=== PATIENT | female | born 1995 | race Caucasian/White ===

== ENCOUNTER → 2019-05-31 | Outpatient (CLI) | payer BC ==
--- NOTE | 2019-05-31 11:33 | Diagnostic Imaging Report ---
INDICATION: survey. TECHNIQUE: Multiple real-time grayscale images were obtained over the gravid uterus. COMPARISON: None FINDINGS: There is a single live fetus in a cephalic presentation. heart rate was recorded at 150 BPM. Placenta is anterior. Amniotic fluid index is 10.8 cm. survey demonstrates kidneys, bladder and stomach to be unremarkable. The brain is unremarkable. There is a four-chamber heart. There is a three-vessel cord with normal insertion. spine is unremarkable. Cervical length is 3.8 cm. Maternal adnexa was not evaluated. Biometrical measurements are as follows: Biparietal 4.86 cm, age 20 weeks 5 days. Head circumference 17.97 cm, age 20 weeks 3 days. Abdominal circumference 14.44 cm, age 19 weeks 6 days. Femur length 3.41 cm, age 20 weeks 6 days. Sonographic estimate age: 20 weeks 4 days. Sonographic estimated date of delivery: 10/14/2019. Estimated Weight: 341 gm (+/- 50 gm). LMP percentile: 68%. heart rate: 150 beats per minute. number: 1 of 1. IMPRESSION: Single live IUP 20 weeks 4 days gestational age. The estimated date of confinement sonographically is 10/14/2019. Dictated by: Dictated on workstation # [id number]
== END ==
LOC: RAD 10:15
PROVIDERS: ATTEND Nurse Practitioner Women's Health
DX: Z36.89 Encounter for other specified antenatal screening (principal); Z3A.20 20 weeks gestation of pregnancy
CPT/HCPCS: 76805

== ENCOUNTER 2019-08-06 11:33 | Outpatient (CLI) | payer BC ==
[~2019-08-06] VITALS: Ht 172.7 cm; Wt 108.8 kg
[2019-08-06] VITALS (13 sets, daily range): BP systolic 120–146; BP diastolic 64–88
--- NOTE | 2019-08-06 11:45 | NUR ---
Admitted per w/c for high blood pressure. Denies leaking of fluid or bleeding. UA obtained. EFM applied. FHTs in 140's with movement noted.
--- NOTE | 2019-08-06 12:20 | NUR ---
This RN at bedside, introduces self to pt. Pt is , EDC 10/15, 29weeks and 5 days gestation. 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 Pt had her BP taken at that time (approx 1045) which was 170/110. Pt denies: headache, blurred vision/vision changes, epigastric pain, n/v/d, HX of hypertension or any health issues, denies complications with . Trace edema in lower extremities, 2+ reflexes. Pt states shes had approx 2 bottles of water today. BP has came down since admit. FHT reactive, no UC. Dr Lynn currently in surgery, will have her call RN when out of surgery for orders since VSS. Pt updated on current status/plan of care and given water. Pt denies needs at this time. Call light within reach, mother of pt at bedside.
--- NOTE | 2019-08-06 13:20 | NUR ---
Checked on pt at this time. Denies needs. VSS. Still waiting for Dr Lynn to finish surgery. Will update pt as soon as RN hear from
--- NOTE | 2019-08-06 13:58 | NUR ---
Dr Lynn called for pt report. Detailed Report given to Dr Lynn at this time including pt CO, current BPs, no preE SS. Dr Lynn putting orders in for PreE labs. This RN will update pt on plan of care
[2019-08-06 14:27] LABS: BASOPHILS % (AUTO) 0 % (0-10); EOSINOPHILS # (AUTO) 0.1 10^3/uL (0.0-0.3); EOSINOPHILS % (AUTO) 1 % (0-10); HEMATOCRIT 30 % (35-52); LYMPHOCYTES # (AUTO) 1.8 X 10^3 (1.0-4.0); LYMPHOCYTES % (AUTO) 17 % (12-44); MEAN CORPUSCULAR HEMOGLOBIN 28 PG (25-34); MEAN CORPUSCULAR HGB CONC 33 G/DL (32-36); MEAN CORPUSCULAR VOLUME 84 FL (80-99); MEAN PLATELET VOLUME 9.9 FL (7.4-10.4); MONOCYTES # (AUTO) 0.6 X 10^3 (0.0-1.0); MONOCYTES % (AUTO) 5 % (0-12); NEUTROPHILS # (AUTO) 8.3 X 10^3 (1.8-7.8); NEUTROPHILS % (AUTO) 77 % (42-75); PLATELET COUNT 263 10^3/uL (130-400); RED CELL DISTRIBUTION WIDTH 13.8 % (10.0-14.5); WHITE BLOOD COUNT 10.8 10^3/uL (4.3-11.0)
[2019-08-06 14:47] LABS: ALANINE AMINOTRANSFERASE 8 U/L (0-55); ALBUMIN 3.1 GM/DL (3.2-4.5); ALKALINE PHOSPHATASE 63 U/L (40-136); BILIRUBIN,TOTAL 0.1 MG/DL (0.1-1.0); BUN/CREATININE RATIO 13; CALCIUM 8.5 MG/DL (8.5-10.1); CARBON DIOXIDE 21 MMOL/L (21-32); CHLORIDE 108 MMOL/L (98-107); CREATININE SERUM 0.48 MG/DL (0.60-1.30); GFR ESTIMATED > 60; GLUCOSE 121 MG/DL (70-105); POTASSIUM 3.6 MMOL/L (3.6-5.0); SODIUM 136 MMOL/L (135-145); TOTAL PROTEIN 6.4 GM/DL (6.4-8.2); URIC ACID 2.4 MG/DL (2.6-7.2)
--- NOTE | 2019-08-06 15:23 | NUR ---
ultrasound called for sono at this time
--- NOTE | 2019-08-06 15:30 | NUR ---
THIS RN TALKED TO DR COLBY ON LD UNIT. LABS OKAYED BY DR. DR COLBY ORDER ULTRASOUND FOR GROWTH. PT MAY BE DC TO HOME. SEND 24 HR URINE HOME WITH PT AND WILL RETURN URINE TO OFFICE ON MONDAY AM. PT UPDATED ON PLANOF CARE WHILE US AT BEDSIDE (APPROX [id number])
--- NOTE | 2019-08-06 16:00 | NUR ---
THIS RN GIVES AND EXPLAINS DC INSTRUCTIONS TO PT.QUESTIONS ANSWERED.
--- NOTE | 2019-08-06 16:23 | Diagnostic Imaging Report ---
INDICATION: Evaluate growth. TECHNIQUE: Multiple real-time grayscale images were obtained over the gravid uterus. COMPARISON: 05/31/2019. FINDINGS: There is a single live fetus in a breech presentation. heart rate was recorded at 139 BPM. Placenta appears anterior. Amniotic fluid index is 16.2 cm. No gross abnormality is seen. Biometrical measurements are as follows: Biparietal 7.82 cm, age 31 weeks 3 days. Head circumference 28.32 cm, age 31 weeks 1 days. Abdominal circumference 26.63 cm, age 30 weeks 6 days. Femur length 5.65 cm, age 29 weeks 5 days. Sonographic estimate age: 30 weeks 6 days. Sonographic estimated date of delivery: 10/09/2019. Estimated Weight: 1582 gm (+/- 231 gm). LMP percentile: 60%. heart rate: 139 beats per minute. number: 1 of 1. IMPRESSION: Single live IUP of approximately 31 weeks gestational age, showing normal interval growth when compared with prior exam. No complicating features are detected. Dictated by: Dictated on workstation # [id number]
--- NOTE | 2019-08-07 10:53 | Physician Query-Final Dx ---
Clinic Account Progress/Dx Physician Query: Please give diagnosis Please include # weeks gestation Date of Service August 06, 2019 at 11:33 DANIELLE WU August 07, 2019 10:53
== END 2019-08-06 16:00 | disposition home or self-care (01) ==
LOC: WSo 11:33 → LDRP 11:34 → WSo 16:00
PROVIDERS: ATTEND Obstetrics & Gynecology
DX: Z34.93 Encounter for supervision of normal pregnancy, unspecified, third trimester (principal); Z3A.34 34 weeks gestation of pregnancy
CPT/HCPCS: 36415; 76805; 80053; 82570; 83615; 84156; 84550; 85025; 99213

== ENCOUNTER → 2019-09-10 | Outpatient (CLI) | payer BC ==
[~2019-09-10] MED LIST: LABE200T7 PO; PREN-142 PO
--- NOTE | 2019-09-10 10:48 | Diagnostic Imaging Report ---
INDICATION: Gestational hypertension. TECHNIQUE: Multiple real-time grayscale images were obtained over the gravid uterus. COMPARISON: 08/06/2019. FINDINGS: There is a single live fetus in a cephalic presentation. heart rate was recorded at 142 BPM. Placenta is anterior. Amniotic fluid index is 8.2 cm. Biophysical profile was performed. Biophysical profile score is normal at 8/8. Biometrical measurements are as follows: Biparietal 9.08 cm, age 36 weeks 6 days. Head circumference 32.18 cm, age 36 weeks 3 days. Abdominal circumference 30.06 cm, age 34 weeks 1 days. Femur length 6.44 cm, age 33 weeks 2 days. Sonographic estimate age: 35 weeks 2 days. Sonographic estimated date of delivery: 10/13/2019. Estimated Weight: 2398 gm (+/- 350 gm). LMP percentile: 41%. heart rate: 142 beats per minute. number: 1 of 1. IMPRESSION: Single live IUP of approximately 35 weeks gestational age demonstrated normal interval growth when compared with prior exam. Biophysical profile score is normal at 8/8. Dictated by: Dictated on workstation # [id number]
== END ==
LOC: RAD 09:35
PROVIDERS: ATTEND Obstetrics & Gynecology
DX: O13.3 Gestational [pregnancy-induced] hypertension without significant proteinuria, third trimester (principal); O32.9XX0 Maternal care for malpresentation of fetus, unspecified, not applicable or unspecified; Z3A.35 35 weeks gestation of pregnancy
CPT/HCPCS: 76805; 76819

== ENCOUNTER 2019-09-11 00:01 | Outpatient (CLI) | payer BC ==
[~2019-09-11] VITALS: Ht 172.7 cm; Wt 113.5 kg
--- NOTE | 2019-09-11 00:10 | NUR ---
ALYSSA DANIELLE presented to unit via W/C from ED, accompanied by Mohinder Wilson, vacuum technician & SO, with c/o CONTRACTIONS,BLOODY DISCHARGE. ALYSSA DANIELLE weighed, gowned, voided, and to bed. EFHM and TOCO applied, VS taken. ALYSSA DANIELLE oriented to bed controls, call light, TV, heat, and A/C controls.
[2019-09-11 00:19] VITALS: BP 132/104
[2019-09-11] MEDS ORDERED: PREN-142 PO (00:24)
[2019-09-11] MEDS ORDERED: LABE200T7 PO (00:24)
[2019-09-11 00:36] VITALS: BP 128/71
[2019-09-11 00:47] LABS: BILIRUBIN,URINE NEGATIVE (NEGATIVE); CLARITY,URINE SL CLOUDY; COLOR,URINE YELLOW; GLUCOSE, URINE (UA) 2+ (NEGATIVE); KETONES,URINE TRACE (NEGATIVE); LEUKOCYTE ESTERASE ,URINE NEGATIVE (NEGATIVE); NITRITE,URINE NEGATIVE (NEGATIVE); PH,URINE 6.5 (5-9); PROTEIN,URINE TRACE (NEGATIVE)
[2019-09-11 00:49] LABS: BACTERIA,URINE TRACE /HPF; SQUAMOUS EPITHELIAL CELL,UR 0-2 /HPF
[2019-09-11 00:50] VITALS: BP 126/69
--- NOTE | 2019-09-11 01:20 | NUR ---
D/C instructions given & explained per Mohinder Marie RN, pt. verbalized understanding & signed, copy of D/C instructions to pt. Pt. left WS ambulatory escorted by , to home via private vehicle.
--- NOTE | 2019-09-12 09:38 | Physician Query-Final Dx ---
Clinic Account Progress/Dx Physician Query: Please give diagnosis Please give # weeks gestation Date of Service Sep 11, 2019 at 00:01 DANIELLE WU Sep 12, 2019 09:38
== END 2019-09-11 01:20 | disposition home or self-care (01) ==
LOC: WSo 00:01 → LDRP 00:02 → WSo 01:20
PROVIDERS: ATTEND Obstetrics & Gynecology
DX: O26.853 Spotting complicating pregnancy, third trimester (principal); Z3A.00 Weeks of gestation of pregnancy not specified
CPT/HCPCS: 81000; G0463; 99212

== ENCOUNTER 2019-09-23 14:33 | Outpatient (CLI) | payer BC ==
[~2019-09-23] VITALS: Ht 172.7 cm; Wt 114.6 kg
--- NOTE | 2019-09-23 14:00 | NUR ---
ALYSSA DANIELLE presented to unit via AMBULATORY from ED, accompanied by MOTHER, with c/o BPP BEING 4/8. SHASHI,ALYSSA L weighed, gowned, voided, and to bed. EFHM and TOCO applied, VS taken. SHASHICRUZALYSSA Azeem oriented to bed controls, call light, TV, heat, and A/C controls.
[2019-09-23 14:10] VITALS: BP 141/88
[2019-09-23 16:00] VITALS: BP 143/88
--- NOTE | 2019-09-23 16:10 | NUR ---
DR. AGUILAR ON THE UNIT, INFORMED OF PT'S ARRIVAL, 06/25 BPP, B/PS, REVIEW OF STRIP, APPT WITH DR. COLBY ON MONDAY, VOICES THAT SHE FELL YESTERDAY BUT LANDED ON HER BACK AND BUTT. ORDER RECEIVED TO DISCHARGE PT HOME.
--- NOTE | 2019-09-23 16:13 | NUR ---
DISCHARGE PAPERS PROVIDED AND REVIEWED WITH PT, PT VERBALIZES UNDERSTANDING AND DENIES ANY QUESTIONS @ THIS TIME. PAPER SIGNED.
--- NOTE | 2019-09-23 16:15 | NUR ---
PT DISCHARGED FROM -[facility] TO PERSONAL AUTO VIA AMBULATORY IN STABLE CONDITION ACC BY PT'S MOTHER.
--- NOTE | 2019-09-24 12:28 | Physician Query-Final Dx ---
Clinic Account Progress/Dx Physician Query: Please give diagnosis Please include #weeks gestation Date of Service Sep 23, 2019 at 14:33 DANIELLE WU Sep 24, 2019 12:28
== END 2019-09-23 16:15 | disposition home or self-care (01) ==
LOC: WSo 14:33 → LDRP 14:34 → WSo 16:15
PROVIDERS: ATTEND Obstetrics & Gynecology
DX: Z34.90 Encounter for supervision of normal pregnancy, unspecified, unspecified trimester (principal); Z3A.00 Weeks of gestation of pregnancy not specified

== ENCOUNTER → 2019-09-23 | Outpatient (CLI) | payer BC ==
--- NOTE | 2019-09-23 13:12 | Diagnostic Imaging Report ---
INDICATION: Follow-up growth and gestational hypertension. TECHNIQUE: Multiple real-time grayscale images were obtained over the gravid uterus. COMPARISON: 09/10/2019. FINDINGS: There is a single live fetus in a cephalic presentation. heart rate was recorded at 146 bpm. The placenta is anterior. Amniotic fluid index is 7.8 cm. A biophysical profile was performed with overall score of 4/8. A two-point deduction each was given for lack of breathing movements visualized as well as movements. Biometrical measurements are as follows: Biparietal 9.22 cm, age 37 weeks 4 days. Head circumference 33.23 cm, age 38 weeks 0 days. Abdominal circumference 30.76 cm, age 34 weeks 5 days. Femur length 7.07 cm, age 36 weeks 2 days. Sonographic estimate age: 36 weeks 5 days. Sonographic estimated date of delivery: 10/16/19. Estimated Weight: 2756 gm (+/- 402 gm). LMP percentile: 37%. heart rate: 146 beats per minute. number: 1 of 1. IMPRESSION: Single live IUP at 36-37 weeks gestational age showing normal interval growth. Biophysical profile score is 4/8, as described. Amniotic fluid index is lower limits at 7.8 cm. Results were called to Dr. Lynn by the technologist at the completion of the study. Dictated by: Dictated on workstation # [id number]
== END ==
LOC: RAD 10:39
PROVIDERS: ATTEND Obstetrics & Gynecology
DX: O13.3 Gestational [pregnancy-induced] hypertension without significant proteinuria, third trimester (principal); Z3A.34 34 weeks gestation of pregnancy
CPT/HCPCS: 76805; 76819

== ENCOUNTER 2019-09-25 19:48 | Inpatient (IN) | payer BC ==
[~2019-09-25] VITALS: Ht 172.7 cm; Wt 114.2 kg
[2019-09-25] MEDS ORDERED: LACTATED RINGERS 1,000 ML IV SCH (20:20)
[2019-09-25] MEDS ORDERED: TERBUTALINE INJ 1 MG/ML (BRETHINE) AMP SC PRN (20:30)
[2019-09-25] MEDS ORDERED: ZOLPIDEM 5 MG (AMBIEN) TAB PO PRN (20:30)
[2019-09-25] MEDS ORDERED: MINERAL OIL CONCENTRATE 99.9% 15 ML UDC TOP PRN (20:30)
[2019-09-25] MEDS ORDERED: MISOPROSTOL 100 MCG (CYTOTEC) TAB PO ONE (20:30)
[2019-09-25 20:36] LABS: BASOPHILS % (AUTO) 0 % (0-10); EOSINOPHILS % (AUTO) 0 % (0-10); HEMATOCRIT 31 % (35-52); HEMOGLOBIN 10.1 G/DL (11.5-16.0); LYMPHOCYTES # (AUTO) 1.9 X 10^3 (1.0-4.0); LYMPHOCYTES % (AUTO) 17 % (12-44); MEAN CORPUSCULAR HEMOGLOBIN 26 PG (25-34); MEAN CORPUSCULAR HGB CONC 33 G/DL (32-36); MEAN CORPUSCULAR VOLUME 80 FL (80-99); MEAN PLATELET VOLUME 10.7 FL (7.4-10.4); MONOCYTES # (AUTO) 0.7 X 10^3 (0.0-1.0); MONOCYTES % (AUTO) 6 % (0-12); NEUTROPHILS # (AUTO) 8.3 X 10^3 (1.8-7.8); NEUTROPHILS % (AUTO) 77 % (42-75); PLATELET COUNT 289 10^3/uL (130-400); RED CELL DISTRIBUTION WIDTH 14.5 % (10.0-14.5); WHITE BLOOD COUNT 10.9 10^3/uL (4.3-11.0)
[2019-09-25 20:47] LABS: ALANINE AMINOTRANSFERASE 11 U/L (0-55); ALBUMIN 3.3 GM/DL (3.2-4.5); ALKALINE PHOSPHATASE 125 U/L (40-136); BILIRUBIN,TOTAL 0.2 MG/DL (0.1-1.0); BUN/CREATININE RATIO 12; CALCIUM 9.6 MG/DL (8.5-10.1); CARBON DIOXIDE 16 MMOL/L (21-32); CHLORIDE 107 MMOL/L (98-107); CREATININE SERUM 0.59 MG/DL (0.60-1.30); GFR ESTIMATED > 60; GLUCOSE 119 MG/DL (70-105); POTASSIUM 3.3 MMOL/L (3.6-5.0); SODIUM 137 MMOL/L (135-145); TOTAL PROTEIN 6.6 GM/DL (6.4-8.2); URIC ACID 3.2 MG/DL (2.6-7.2)
[2019-09-25 21:00] VITALS: BP 138/85
[2019-09-25] MEDS: D5 LR IV SOLUTION 1,000 ML IV SCH (21:04)
[2019-09-25] MEDS: LABETALOL 200 MG (NORMODYNE) TAB PO SCH (21:32)
[2019-09-25 22:00] VITALS: BP 145/81
[2019-09-25] MEDS ORDERED: CATHETER FLUSH 10 ML SYR IV SCH (22:00)
--- OUTSIDE RECORDS SUMMARY | 2019-09-25 22:30 | XMS REPORT | Continuity of Care Document ---
Author Organization Unknown Address Unknown Phone Unavailable Allergies Active Description Code Type Severity Reaction Onset Reported/Identified Relationship to Patient Clinical Status Yes No Known Drug Allergies [id number] Drug Allergy Unknown N/A 08/06/2019 Medications There is no data. Problems Date Dx Coded Attending Type Code Diagnosis Diagnosed By 07/04/2016 AMY WALDROP RN BURN Ot 780.2 SYNCOPE AND COLLAPSE 07/04/2016 AMY WALDROP RN BURN Ot 794.31 ABNORM ELECTROCARDIOGRAM 06/04/2019 NOEMÍ OVALLE RN BURN Ot Z36.89 ENCOUNTER FOR OTHER SPECIFIED 06/04/2019 NOEMÍ OVALLE RN BURN Ot Z3A.20 20 WEEKS GESTATION OF 06/12/2019 NOEMÍ OVALLE RN BURN Ot Z36.89 ENCOUNTER FOR OTHER SPECIFIED 06/12/2019 NOEMÍ OVALLE RN BURN Ot Z3A.20 20 WEEKS GESTATION OF 08/06/2019 NOEMÍ OVALLE RN BURN Ot Z36.89 ENCOUNTER FOR OTHER SPECIFIED 08/06/2019 NOEMÍ OVALLE RN BURN Ot Z3A.20 20 WEEKS GESTATION OF 08/06/2019 COLBY DO, DARIO C Ot Z34.9 3 ENCNTR FOR SUPRVSN OF NORMAL PREG, UNSP, 08/06/2019 COLBY DO, DARIO C Ot Z3A.3 4 34 WEEKS GESTATION OF 08/08/2019 COLBY DO, DARIO C Ot Z34.9 3 ENCNTR FOR SUPRVSN OF NORMAL PREG, UNSP, 08/08/2019 COLBY DO, DARIO C Ot Z3A.3 4 34 WEEKS GESTATION OF 08/09/2019 NOEMÍ OVALLE RN BURN Ot Z36.89 ENCOUNTER FOR OTHER SPECIFIED 08/09/2019 NOEMÍ OVALLE RN BURN Ot Z3A.20 20 WEEKS GESTATION OF 09/11/2019 NOEMÍ OVALLE RN BURN Ot Z36.89 ENCOUNTER FOR OTHER SPECIFIED 09/11/2019 NOEMÍ OVALLE RN BURN Ot Z3A.20 20 WEEKS GESTATION OF 09/11/2019 COLBY DO, DARIO C Ot O13.3 GESTATIONAL HTN W/O SIGNIFICANT PROTEINU 09/11/2019 COLBY DO, DARIO C Ot O32.9XX0 MATERNAL CARE FOR MALPRESENTATION OF FET 09/11/2019 COLBY DO, DARIO C Ot Z3A.3 5 35 WEEKS GESTATION OF 09/12/2019 COLBY DO, DARIO C Ot O26.8 53 SPOTTING COMPLICATING , THIRD T 09/12/2019 COLBY DO, DARIO C Ot Z3A.0 0 WEEKS OF GESTATION OF NOT SPEC 09/17/2019 COLBY DO, DARIO C Ot O26.8 53 SPOTTING COMPLICATING , THIRD T 09/17/2019 COLBY DO, DARIO C Ot Z3A.0 0 WEEKS OF GESTATION OF NOT SPEC 09/25/2019 SEALS DO, LIOR E Ot Z34.9 0 ENCNTR FOR SUPRVSN OF NORMAL , 09/25/2019 SEALS DO, LIOR E Ot Z3A.0 0 WEEKS OF GESTATION OF NOT SPEC 09/25/2019 COLBY DO, DARIO C Ot O13.3 GESTATIONAL HTN W/O SIGNIFICANT PROTEINU 09/25/2019 COLBY DO, DARIO C Ot Z3A.3 4 34 WEEKS GESTATION OF Procedures There is no data. Results Test Result Range Urine protein/creatinine mass ratio - 13:40 Urine protein measurement (mass/volume) 24 mg/dL 6-12 Urine creatinine measurement (mass/volume) 146 mg/ dL 30-125 Urine protein/creatinine mass ratio 0.16 NRG Complete blood count (CBC) with automate d white blood cell (WBC) differential - 08/06/19 14:16 Blood leukocytes automated count (number/volume) 10.8 10*3/uL 4.3-11.0 Blood erythrocytes automated count (number/volume) 3.63 10*6/uL 4.35-5.85 Venous blood hemoglobin measurement (mass/volume) 10.0 g/dL 11.5-16.0 Blood hematocrit (volume fraction) 30 % 35-52 Automated erythrocyte mean corpuscular volume 84 [ foz_us] 80-99 Automated erythrocyte mean corpuscular h emoglobin (mass per erythrocyte) 28 pg 25-34 Automated erythrocyte mean corpuscular h emoglobin concentration measurement (mass/volume) 33 g/dL 32-36 Automated erythrocyte distribution width ratio 13. 8 % 10.0- 14.5 Automated blood platelet count (count/volume) 263 10*3/uL 130-400 Automated blood platelet mean volume measurement 9.9 [foz_us] 7.4-10.4 Automated blood neutrophils/100 leukocytes 77 % 42-75 Automated blood lymphocytes/100 leukocytes 17 % 12-44 Blood monocytes/100 leukocytes 5 % 0-12 Automated blood eosinophils/100 leukocytes 1 % 0-10 Automated blood basophils/100 leukocytes 0 % 0-10 Blood neutrophils automated count (number/volume) 8.3 10*3 1.8-7.8 Blood lymphocytes automated count (number/volume) 1.8 10*3 1.0-4.0 Blood monocytes automated count (number/volume) 0. 6 10*3 0.0-1.0 Automated eosinophil count 0.1 10*3/uL 0 .0-0.3 Automated blood basophil count (count/volume) 0.0 10*3/uL 0.0-0.1 Comprehensive metabolic panel - 08/06/19 14:16 Serum or plasma sodium measurement (moles/volume) 136 mmol/L 135-145 Serum or plasma potassium measurement (moles/volume) 3.6 mmol/L 3.6-5.0 Serum or plasma chloride measurement (moles/volume) 108 mmol/L 98-107 Carbon dioxide 21 mmol/L 21-32 Serum or plasma anion gap determination (moles/volume) 7 mmol/L 5-14 Serum or plasma urea nitrogen measurement (mass/volume ) 6 mg/dL 7-18 Serum or plasma creatinine measurement (mass/volume) 0.48 mg/dL 0.60-1.30 Serum or plasma urea nitrogen/creatinine mass ratio 13 NRG Serum or plasma creatinine measurement w ith calculation of estimated glomerular filtration rate > NRG Serum or plasma glucose measurement (mass/volume) 121 mg/dL 70-105 Serum or plasma calcium measurement (mass/volume) 8.5 mg/dL 8.5-10.1 Serum or plasma total bilirubin measurement (mass/volu me) 0.1 mg/dL 0.1-1.0 Serum or plasma alkaline phosphatase porfirio surement (enzymatic activity/volume) 63 U/L 40-136 Serum or plasma aspartate aminotransfera se measurement (enzymatic activity/volume) 9 U/L 5-34 Serum or plasma alanine aminotransferase measurement (enzymatic activity/volume) 8 U/L 0-55 Serum or plasma protein measurement (mass/volume) 6.4 g/dL 6.4-8.2 Serum or plasma albumin measurement (mass/volume) 3.1 g/dL 3.2-4.5 CALCIUM CORRECTED 9.2 mg/dL 8.5-10.1 Serum or plasma uric acid measurement (m ass/volume) - 08/06/19 14:16 Serum or plasma uric acid measurement (mass/volume) 2.4 mg/dL 2.6-7.2 Serum ragweed IgE antibody assay - 08/05 14:16 Serum ragweed IgE antibody assay 133 U/L 125-220 [id number] - 08/06/19 14:16 [id number] SPECIMEN AVAILABLE NRG Complete urinalysis with reflex to cultu re - 09/11/19 00:10 Urine color determination YELLOW NRG Urine clarity determination SL CLOUDY N RG Urine pH measurement by test strip 6.5 5-9 Specific gravity of urine by test strip 1.025 1.016-1.022 Urine protein assay by test strip, semi-quantitative TRACE NEGATIVE Urine glucose detection by automated test strip 2+ NEGATIVE Erythrocytes detection in urine sediment by light micr oscopy NEGATIVE NEGATIVE Urine ketones detection by automated test strip TR CARLOS NEGATIVE Urine nitrite detection by test strip NEGATIVE NEGATIVE Urine total bilirubin detection by test strip NEGA TIVE NEGATIVE Urine urobilinogen measurement by automated test strip (mass/volume) 0.2 mg/dL < = 1.0 Urine leukocyte esterase detection by dipstick NEG ATIVE NEGATIVE Automated urine sediment erythrocyte cou nt by microscopy (number/high power field) NONE NRG Automated urine sediment leukocyte count by microscopy (number/high power field) NONE NRG Bacteria detection in urine sediment by light microsco py TRACE NRG Squamous epithelial cells detection in u rine sediment by light microscopy 0-2 NRG Crystals detection in urine sediment by light microsco py NONE NRG Casts detection in urine sediment by light microscopy NONE NRG Mucus detection in urine sediment by light microscopy SMALL NRG Complete urinalysis with reflex to culture NO NRG Complete blood count (CBC) with automate d white blood cell (WBC) differential - 09/25/19 20:10 Blood leukocytes automated count (number/volume) 10.9 10*3/uL 4.3-11.0 Blood erythrocytes automated count (number/volume) 3.86 10*6/uL 4.35-5.85 Venous blood hemoglobin measurement (mass/volume) 10.1 g/dL 11.5-16.0 Blood hematocrit (volume fraction) 31 % 35-52 Automated erythrocyte mean corpuscular volume 80 [ foz_us] 80-99 Automated erythrocyte mean corpuscular h emoglobin (mass per erythrocyte) 26 pg 25-34 Automated erythrocyte mean corpuscular h emoglobin concentration measurement (mass/volume) 33 g/dL 32-36 Automated erythrocyte distribution width ratio 14. 5 % 10.0- 14.5 Automated blood platelet count (count/volume) 289 10*3/uL 130-400 Automated blood platelet mean volume measurement 10.7 [foz_us] 7.4-10.4 Automated blood neutrophils/100 leukocytes 77 % 42-75 Automated blood lymphocytes/100 leukocytes 17 % 12-44 Blood monocytes/100 leukocytes 6 % 0-12 Automated blood eosinophils/100 leukocytes 0 % 0-10 Automated blood basophils/100 leukocytes 0 % 0-10 Blood neutrophils automated count (number/volume) 8.3 10*3 1.8-7.8 Blood lymphocytes automated count (number/volume) 1.9 10*3 1.0-4.0 Blood monocytes automated count (number/volume) 0. 7 10*3 0.0-1.0 Automated eosinophil count 0.0 10*3/uL 0 .0-0.3 Automated blood basophil count (count/volume) 0.0 10*3/uL 0.0-0.1 Comprehensive metabolic panel - 09/25/19 20:10 Serum or plasma sodium measurement (moles/volume) 137 mmol/L 135-145 Serum or plasma potassium measurement (moles/volume) 3.3 mmol/L 3.6-5.0 Serum or plasma chloride measurement (moles/volume) 107 mmol/L 98-107 Carbon dioxide 16 mmol/L 21-32 Serum or plasma anion gap determination (moles/volume) 14 mmol/L 5-14 Serum or plasma urea nitrogen measurement (mass/volume ) 7 mg/dL 7-18 Serum or plasma creatinine measurement (mass/volume) 0.59 mg/dL 0.60-1.30 Serum or plasma urea nitrogen/creatinine mass ratio 12 NRG Serum or plasma creatinine measurement w ith calculation of estimated glomerular filtration rate > NRG Serum or plasma glucose measurement (mass/volume) 119 mg/dL 70-105 Serum or plasma calcium measurement (mass/volume) 9.6 mg/dL 8.5-10.1 Serum or plasma total bilirubin measurement (mass/volu me) 0.2 mg/dL 0.1-1.0 Serum or plasma alkaline phosphatase porfirio surement (enzymatic activity/volume) 125 U/L 40-136 Serum or plasma aspartate aminotransfera se measurement (enzymatic activity/volume) 16 U/L 5-34 Serum or plasma alanine aminotransferase measurement (enzymatic activity/volume) 11 U/L 0-55 Serum or plasma protein measurement (mass/volume) 6.6 g/dL 6.4-8.2 Serum or plasma albumin measurement (mass/volume) 3.3 g/dL 3.2-4.5 CALCIUM CORRECTED 10.2 mg/dL 8.5-10.1 Serum or plasma uric acid measurement (m ass/volume) - 09/25/19 20:10 Serum or plasma uric acid measurement (mass/volume) 3.2 mg/dL 2.6-7.2 Serum ragweed IgE antibody assay - 09/24 20:10 Serum ragweed IgE antibody assay 338 U/L 125-220 Blood type T Indirect antibody screen pa rosa - 09/25/19 20:10 WRISTBAND NUMBER [id number] NRG ABO+Rh group AP NRG Blood group antibody screen NEGATIVE NR G Urine protein/creatinine mass ratio - 21:45 Urine protein measurement (mass/volume) 15 mg/dL 6-12 Urine creatinine measurement (mass/volume) 110 mg/ dL 30-125 Urine protein/creatinine mass ratio 0.14 NRG Encounters ACCT No. Visit Date/Time Discharge Status Pt. Type Provider Facility Loc./Unit Complaint [id number] 09/23/2019 14:33:00 020 16:15:00 DIS Outpatient LIOR AGUILAR DO [facility] BPP [id number] 09/11/2019 00:01:00 01:20:00 DIS Outpatient DARIO COLBY DO [facility] CONTRACTIONS,BLOODY DIS CHARGE [id number] 09/10/2019 09:35:00 23:59:59 CLS Outpatient DARIO COLBY DO [facility] RAD GESTATIONAL HTN [id number] 08/06/2019 11:33:00 16:00:00 DIS Outpatient DARIO COLBY DO [facility] WSo HIGH BLOOD PRESSURE [id number] 05/31/2019 10:15:00 23:59:59 CLS Outpatient NOEMÍ OVALLE RN BURN [facility] RAD ANATOMY SCAN [id number] 07/24/2013 09:36:00 23:59:59 CLS Outpatient AMY WALDROP RN BURN [facility] CARD PRE SYNCOPE,ABN EKG [id number] 09/25/2019 19:48:[address] Inpatient DARIO COLBY DO [facility] LDRP INDUCTION [id number] 09/23/2019 10:39:[address] Outpatient DARIO COLBY DO [facility] RAD GESTATIONAL HYPERTENSION
[2019-09-25 23:00] VITALS: BP 146/87
[2019-09-26] VITALS (26 sets, daily range): BP systolic 129–169; BP diastolic 68–96
[2019-09-26] MEDS: MISOPROSTOL 100 MCG (CYTOTEC) TAB PO SCH ×6 (00:58→21:41)
[2019-09-26] MEDS ORDERED: PHYTONADIONE (VIT. K) NEONATAL 1 MG/0.5 ML AMP ONE (02:10)
[2019-09-26] MEDS ORDERED: PETROLATUM JELLY(VASELINE) 49 GM JAR ONE (02:10)
[2019-09-26] MEDS ORDERED: ERYTHROMYCIN OPHTH OINT 1 GM (SINGLE USE) TUBE ONE (02:10)
[2019-09-26] MEDS: D5 LR IV SOLUTION 1,000 ML IV SCH ×3 (03:44→21:05)
[2019-09-26 07:05] LABS: BILIRUBIN,URINE NEGATIVE (NEGATIVE); CLARITY,URINE CLEAR; COLOR,URINE YELLOW; GLUCOSE, URINE (UA) NEGATIVE (NEGATIVE); KETONES,URINE 1+ (NEGATIVE); LEUKOCYTE ESTERASE ,URINE NEGATIVE (NEGATIVE); NITRITE,URINE NEGATIVE (NEGATIVE); PROTEIN,URINE NEGATIVE (NEGATIVE)
[2019-09-26 07:14] LABS: BACTERIA,URINE FEW /HPF; WBC,URINE 0-2 /HPF
[2019-09-26] MEDS ORDERED: morphine INJ 10 MG/ML 1ML (SYR OR VIAL) IVP PRN (07:15)
--- NOTE | 2019-09-26 07:20 | NUR ---
G 1 at 36.5 weeks gestation for cytotec induction for gestational hypertension. Pt rates pain 7 from uterine contractions felt in lower abdomen and radiates to back. BP 141/87 with semi fowlers position. S.O. at bedside. pattern reassuring.
[2019-09-26] MEDS: LABETALOL 200 MG (NORMODYNE) TAB PO SCH ×2 (08:15→21:05)
--- NOTE | 2019-09-26 08:51 | Progress Note ---
Progress Note Assessment/Plan Date Seen by Provider: Sep 26, 2019 Time Seen by Provider: 08:50 Events since last exam Misoprostol Shefali irregularly. BP h ave been elevated, but better with labetalol Just starting to have some pain with ctx. well being reassuring. PC ratio 0.14 Laboratory Tests Test 09/25/19 20:10 09/25/19 21:45 Range/Units White Blood Count 10.9 4.3-11.0 10^3/uL Red Blood Count 3.86 L 4.35-5.85 10^6/uL Hemoglobin 10.1 L 11.5-16.0 G/DL Hematocrit 31 L 35-52 % Mean Corpuscular Volume 80 80-99 FL Mean Corpuscular Hemoglobin 26 25-34 PG Mean Corpuscular Hemoglobin Concent 33 32-36 G/DL Red Cell Distribution Width 14.5 10.0-14.5 % Platelet Count 289 130-400 10^3/uL Mean Platelet Volume 10.7 H 7.4-10.4 FL Neutrophils (%) (Auto) 77 H 42-75 % Lymphocytes (%) (Auto) 17 12-44 % Monocytes (%) (Auto) 6 0-12 % Eosinophils (%) (Auto) 0 0-10 % Basophils (%) (Auto) 0 0-10 % Neutrophils # (Auto) 8.3 H 1.8-7.8 X 10^3 Lymphocytes # (Auto) 1.9 1.0-4.0 X 10^3 Monocytes # (Auto) 0.7 0.0-1.0 X 10^3 Eosinophils # (Auto) 0.0 0.0-0.3 10^3/uL Basophils # (Auto) 0.0 0.0-0.1 10^3/uL Sodium Level 137 135-145 MMOL/L Potassium Level 3.3 L 3.6-5.0 MMOL/L Chloride Level 107 98-107 MMOL/L Carbon Dioxide Level 16 L 21-32 MMOL/L Anion Gap 14 5-14 MMOL/L Blood Urea Nitrogen 7 7-18 MG/DL Creatinine 0.59 L 0.60-1.30 MG/DL Estimat Glomerular Filtration Rate > 60 BUN/Creatinine Ratio 12 Glucose Level 119 H 70-105 MG/DL Uric Acid 3.2 2.6-7.2 MG/DL Calcium Level 9.6 8.5-10.1 MG/DL Corrected Calcium 10.2 H 8.5-10.1 MG/DL Total Bilirubin 0.2 0.1-1.0 MG/DL Aspartate Amino Transf (AST/SGOT) 16 5-34 U/L Alanine Aminotransferase (ALT/SGPT) 11 0-55 U/L Alkaline Phosphatase 125 40-136 U/L Lactate Dehydrogenase 338 H 125-220 U/L Total Protein 6.6 6.4-8.2 GM/DL Albumin 3.3 3.2-4.5 GM/DL Urine Color YELLOW Urine Clarity CLEAR Urine pH 6.0 5-9 Urine Specific [place] 1.025 H 1.016-1.022 Urine Protein NEGATIVE NEGATIVE Urine Glucose (UA) NEGATIVE NEGATIVE Urine Ketones 1+ H NEGATIVE Urine Nitrite NEGATIVE NEGATIVE Urine Bilirubin NEGATIVE NEGATIVE Urine Urobilinogen 0.2 < = 1.0 MG/DL Urine Leukocyte Esterase NEGATIVE NEGATIVE Urine RBC (Auto) NEGATIVE NEGATIVE Urine RBC NONE /HPF Urine WBC 0-2 /HPF Urine Squamous Epithelial Cells 2-5 /HPF Urine Crystals NONE /LPF Urine Bacteria FEW H /HPF Urine Casts NONE /LPF Urine Mucus SMALL H /LPF Urine Culture Indicated NO Urine Creatinine 110 30-125 MG/DL Urine Protein/Creatinine Ratio 0.14 Assessment/Plan 1. 36 6/7 weeks 2. hypertension (may be preexisting, but did not have issues until mid )/gestational hypertension/ preeclampsia Continue cervical ripening. Change to oxytocin as needed and AROM as needed Continue labetalol, but would start magnesium for seizure prophylaxis as needed and dose IV antihypertensives as needed. Vitals Last set of Vitals Signs Vital Signs Date Time Temp Pulse Resp B/P (MAP) Pulse Ox O2 Delivery O2 Flow Rate FiO2 09/26/19 07:35 36.3 83 16 141/87 (105) 99 Room Air Labs Laboratory Tests 09/25/19 20:10: White Blood Count 10.9, Red Blood Count 3.86L, Hemoglobin 10.1L, Hematocrit 31L, Mean Corpuscular Volume 80, Mean Corpuscular Hemoglobin 26, Mean Corpuscular Hemoglobin Concent 33, Red Cell Distribution Width 14.5, Platelet Count 289, Mean Platelet Volume 10.7H, Neutrophils (%) (Auto) 77H, Lymphocytes (%) (Auto) 17, Monocytes (%) (Auto) 6, Eosinophils (%) (Auto) 0, Basophils (%) (Auto) 0, Neutrophils # (Auto) 8.3H, Lymphocytes # (Auto) 1.9, Monocytes # (Auto) 0.7, Eosinophils # (Auto) 0.0, Basophils # (Auto) 0.0, Sodium Level 137, Potassium Level 3.3L, Chloride Level 107, Carbon Dioxide Level 16L, Anion Gap 14, Blood Urea Nitrogen 7, Creatinine 0.59L, Estimat Glomerular Filtration Rate > 60, BUN/Creatinine Ratio 12, Glucose Level 119H, Uric Acid 3.2, Calcium Level 9.6, Corrected Calcium 10.2H, Total Bilirubin 0.2, Aspartate Amino Transf (AST/SGOT) 16, Alanine Aminotransferase (ALT/SGPT) 11, Alkaline Phosphatase 125, Lactate De hydrogenase 338H, Total Protein 6.6, Albumin 3.3 09/25/19 21:45: Urine Color YELLOW, Urine Clarity CLEAR, Urine pH 6.0, Urine Specific [place] 1.025H, Urine Protein NEGATIVE, Urine Glucose (UA) NEGATIVE, Urine Ketones 1+H, Urine Nitrite NEGATIVE, Urine Bilirubin NEGATIVE, Urine Urobilinogen 0.2, Urine Leukocyte Esterase NEGATIVE, Urine RBC (Auto) NEGATIVE, Urine RBC NONE, Urine WBC 0-2, Urine Squamous Epithelial Cells 2-5, Urine Crystals NONE, Urine Bacteria FEWH, Urine Casts NONE, Urine Mucus SMALLH, Urine Culture Indicated NO, Urine Creatinine 110, Urine Protein/Creatinine Ratio 0.14 Clinical Quality Measures DVT/VTE Risk/Contraindication: Risk Factor Score Per Nursin RFS Level Per Nursing on Admit: 1=Low/No VTE PPX DARIO COLBY DO Sep 26, 2019 08:51
[2019-09-26] MEDS ORDERED: PROMETHAZINE INJ 25 MG/ML (PHENERGAN) AMP IVP PRN (20:45)
[2019-09-26] MEDS: morphine INJ 10 MG/ML 1ML (SYR OR VIAL) IVP PRN (21:42)
[2019-09-27] VITALS (57 sets, daily range): BP systolic 105–196; BP diastolic 58–114
[2019-09-27] MEDS: MISOPROSTOL 100 MCG (CYTOTEC) TAB PO SCH ×2 (01:35→05:42)
[2019-09-27] MEDS: D5 LR IV SOLUTION 1,000 ML IV SCH ×2 (02:54→10:51)
[2019-09-27] MEDS: morphine INJ 10 MG/ML 1ML (SYR OR VIAL) IVP PRN (02:54)
[2019-09-27] MEDS ORDERED: LORATADINE (CLARITIN) 10 MG TAB PO ONE (07:30)
[2019-09-27] MEDS ORDERED: OXYTOCIN PRE-MIX DRIP 500 ML IV SCH ×2 (07:31→16:02)
[2019-09-27] MEDS: LABETALOL 200 MG (NORMODYNE) TAB PO SCH ×2 (08:44→20:52)
[2019-09-27] MEDS: OXYMETAZOLINE (AFRIN) 0.05% NA 30 ML BTL SCH ×2 (08:45→21:00)
[2019-09-27] MEDS ORDERED: fentaNYL 2 mcg/ml BUPIVA 0.125 100 ML ONE (08:53)
[2019-09-27] MEDS ORDERED: ONDANSETRON 4 MG/2 ML (SDV) Z0FRAN ONE (09:26)
[2019-09-27] MEDS ORDERED: LIDOCAINE PF 2% 5 ML (XYLOCAINE) VIAL ONE (09:39)
[2019-09-27] MEDS ORDERED: fentaNYL INJECTION 100 MCG/2 ML AMP ONE (09:39)
[2019-09-27] MEDS ORDERED: BUPIVACAINE 0.25% 30 ML (SENSORCAINE) VIAL ONE (09:39)
[2019-09-27] MEDS ORDERED: LACTATED RINGERS 1,000 ML IV SCH (10:14)
[2019-09-27] MEDS ORDERED: diphenhydrAMINE 50 MG/ML INJ (BENADRYL) IV PRN (10:15)
[2019-09-27] MEDS ORDERED: ONDANSETRON 4 MG/2 ML (SDV) Z0FRAN IV PRN (10:15)
[2019-09-27] MEDS ORDERED: EPIDURAL (fentaNYL 2 MCG/ML BUPIVA 0.125%)100 ML BAG EPI PRN (10:15)
[2019-09-27] MEDS ORDERED: NALOXONE 0.4 MG/ML 1 ML (NARCAN) VIAL IV PRN (10:15)
--- NOTE | 2019-09-27 11:29 | NUR ---
Dr Lynn notified of SVE 5 cms, epidural in, Pitocin initiated, and improved BP's.
--- NOTE | 2019-09-27 13:59 | NUR ---
Notified Dr Lynn of pt SVE - 10cms, -1. Will labor down
[2019-09-27] MEDS ORDERED: LIDOCAINE/EPI 2% 1:200,00 (XYLOCAINE) 10 ML VIAL ONE (15:19)
[2019-09-27] MEDS ORDERED: TETANUS,DIPTH,PERTUSS P/F (BOOSTRIX) 0.5 ML VIAL IM ONE (16:15)
[2019-09-27] MEDS ORDERED: DIBUCAINE (NUPERCAINAL) 1% OINT 30 GM TOP PRN (16:15)
[2019-09-27] MEDS ORDERED: BENZOCAINE/MENTHOL (DERMOPLAST) 60 ML CAN TP PRN (16:15)
[2019-09-27] MEDS ORDERED: MEASLES,MUMPS,RUBELLA 1 EA INJ SQ ONE (16:15)
[2019-09-27] MEDS ORDERED: WITCH HAZEL(TUCKS) 40 EA JAR TOP PRN (16:15)
--- NOTE | 2019-09-27 16:32 | OB Labor & Delivery Record ---
Vag Delivery Note Vag Delivery Note Date of Delivery: 09/27/19 Preoperative Diagnosis: Debi Hyatt is a 24 /Para 1 /0, Gestational Age 36 6/7 weeks with gestational hypertension/preeclampsia Postoperative Diagnosis: Same Surgeon: DARIO COLBY Anesthesia: epidural Delivery Type: vaginal Findings: Viable male , apgars 8/9, weight pending Lacerations: 2nd degree Intact placenta with 3 vessel cord.. complex presentation with right had at chin. [place] umbilical cord. Estimated Blood Loss: 100 ml Complications: None Condition: Stable Description of Procedure: The patient is a 24 year old female who presented at 36/57 weeks for induction of labor. She has had hypertension that developed during the . She had workup for preeclampsia, but this was negative. Labile blood pressures starting in the 2nd trimester. She was taken off work at 30 weeks and put on modified bed rest. Labetalol 200 mg bid was started and had control until the last few visits. Her BP on the day of admission was 160/110 and 150/102 with 1+ proteinuria. She was admitted and informed consent was obtained. Her labor course was remarkable for cervical ripening x 36 hours, then AROM (0715 at 2-3 cm) and augmentation with pitocin. She progressed to complete dilatation and began to push. She was then set up for delivery. The infant's head was delivered atraumatically in the HOMER position. The shoulders and remainder of the infant's body were then delivered without difficulty. Upon delivery, the head was held below the level of the perineum and the mouth and nares were bulb suctioned. The cord was doubly clamped and cut and the infant was handed off to the pediatric staff. An intact placenta with 3-vessel cord delivered via [place] and there was found to be minimal bleeding.~ Vigorous fundal massage was performed and the fundus was found to be firm. IV oxytocin was given. Examination of the vagina and perineum revealed a 2nd degree laceration repaired in the usual fashion with 3-0 vicryl suture. Following the repair, sponge, instrument and needle counts were correct. Mom and baby were both in stable condition in the labor suite. The labetalol will be continued bid post Vitals - Labs Vital Signs - I&O Vital Signs Date Time Temp Pulse Resp B/P (MAP) Pulse Ox O2 Delivery O2 Flow Rate FiO2 09/27/19 12:00 86 133/69 (90) 100 09/27/19 11:45 71 138/74 (95) 97 09/27/19 11:30 74 140/75 (96) 98 09/27/19 11:15 37.0 70 142/76 (98) 100 09/27/19 11:00 71 150/67 (94) 100 09/27/19 10:45 73 148/89 (108) 99 09/27/19 10:30 81 149/89 (109) 99 09/27/19 10:20 37.5 83 18 147/86 (106) 97 09/27/19 10:16 86 146/88 (107) 09/27/19 10:15 37.5 09/27/19 10:13 80 147/86 (106) 97 09/27/19 10:10 95 141/85 (103) 99 09/27/19 10:08 95 153/93 (113) 99 09/27/19 10:05 85 168/90 (116) 09/27/19 10:00 98 165/90 (115) 09/27/19 09:58 90 164/85 (111) 09/27/19 09:55 86 172/91 (118) 09/27/19 09:52 85 166/90 (115) 99 09/27/19 09:46 77 18 169/94 (119) 100 09/27/19 09:45 75 170/105 (126) 100 09/27/19 09:30 90 20 100 09/27/19 09:30 84 162/94 (116) 09/27/19 09:15 129 171/100 (123) 100 09/27/19 09:08 77 190/96 (127) 09/27/19 09:00 90 20 190/96 (127) 100 09/27/19 08:40 76 196/101 (132) 09/27/19 07:40 37.0 75 18 179/101 (127) 09/27/19 07:00 71 18 149/70 (96) 09/27/19 06:00 36.8 76 18 135/77 (96) 09/27/19 05:00 72 18 136/69 (91) 09/27/19 04:00 72 18 137/78 (97) 09/27/19 03:00 18 09/27/19 02:00 85 18 147/76 (99) 09/27/19 01:00 75 18 150/74 (99) 09/27/19 00:00 79 18 155/72 (99) 09/26/19 23:00 78 18 154/77 (102) 09/26/19 22:00 88 18 129/70 (89) 09/26/19 21:00 80 18 152/85 (107) 09/26/19 20:00 37.0 86 136/81 (99) 09/26/19 18:40 80 151/87 (108) 09/26/19 17:40 36.6 72 153/74 (100) 09/26/19 16:40 81 152/80 (104) I & O 09/27/19 07:00 Intake Total 1000 ml Balance 1000 ml Labs Microbiology 09/25/19 Urine Culture - Final, Complete 3 or more isolates DARIO COLBY DO Sep 27, 2019 16:32
[2019-09-27] MEDS ORDERED: IBUP-844 PO (16:35)
[2019-09-27] MEDS ORDERED: FERR325T18 PO (16:35)
[2019-09-27] MEDS ORDERED: ACET-93 PO (16:35)
--- NOTE | 2019-09-27 16:37 | Discharge Inst-Women's Service ---
Discharge Inst-Women's Serv Depart Medication/Instructions New, Converted or Re-Newed RX: Transmitted to Pharmacy Final Diagnosis gestational hypertension/preeclampsia 36 week gestation Problems Reviewed?: Yes Consults/Follow Up Additional Follow Up: Yes (2 weeks with Breanne and 6 weeks pp exam) Activity Activity: Activity as Tolerated Driving Instructions: You May Drive NO SMOKING: NO SMOKING Nothing Inside Vagina: No Douching, No [place], No Tampons Diet Discharge Diet: No Restrictions Symptoms to Report to : Bleeding Excessive, Pain Increased, Fever Over 101 Degrees F, Vaginal Bleeding Increase, Cramps in Feet or Legs, Vaginal Discharge Foul For Any Problems or Questions: Contact Your Physician Skin/Wound Care Bathing Instructions: DARIO Gonzalez DO Sep 27, 2019 16:36
[2019-09-27] MEDS: IBUPROFEN 600 MG (MOTRIN) TAB PO SCH (18:16)
--- NOTE | 2019-09-27 20:50 | NUR ---
Patient ambulated without difficulty to bathroom with standby assist. Positive void noted.
[2019-09-27] MEDS: DOCUSATE SODIUM 100 MG (COLACE) CAP PO SCH (20:52)
[2019-09-27] MEDS: ACETAMINOPHEN 500 MG TAB (TYLENOL) PO SCH (20:52)
[2019-09-27] MEDS ORDERED: LABETALOL 200 MG (NORMODYNE) TAB PO SCH (21:00)
--- NOTE | 2019-09-27 21:00 | NUR ---
Patient transferred to PP room 312 via wheelchair, accompanied by staff, , and in crib. Patient oriented to room, call light, and dietary menu. folder given and explained. Fresh ice water provided.
[2019-09-27] MEDS ORDERED: CATHETER FLUSH 10 ML SYR IV SCH (22:00)
[2019-09-28] MEDS: IBUPROFEN 600 MG (MOTRIN) TAB PO SCH ×4 (00:04→16:45)
[2019-09-28 00:05] VITALS: BP 144/88
[2019-09-28 04:00] VITALS: BP 128/80
[2019-09-28] MEDS: ACETAMINOPHEN 500 MG TAB (TYLENOL) PO SCH ×2 (04:03→16:44)
[2019-09-28 05:28] LABS: BASOPHILS % (AUTO) 0 % (0-10); EOSINOPHILS # (AUTO) 0.1 10^3/uL (0.0-0.3); EOSINOPHILS % (AUTO) 1 % (0-10); HEMATOCRIT 30 % (35-52); HEMOGLOBIN 9.6 G/DL (11.5-16.0); LYMPHOCYTES # (AUTO) 2.4 X 10^3 (1.0-4.0); LYMPHOCYTES % (AUTO) 21 % (12-44); MEAN CORPUSCULAR HEMOGLOBIN 26 PG (25-34); MEAN CORPUSCULAR HGB CONC 32 G/DL (32-36); MEAN CORPUSCULAR VOLUME 82 FL (80-99); MEAN PLATELET VOLUME 10.4 FL (7.4-10.4); MONOCYTES # (AUTO) 0.9 X 10^3 (0.0-1.0); MONOCYTES % (AUTO) 8 % (0-12); NEUTROPHILS # (AUTO) 7.7 X 10^3 (1.8-7.8); NEUTROPHILS % (AUTO) 70 % (42-75); PLATELET COUNT 245 10^3/uL (130-400); RED CELL DISTRIBUTION WIDTH 14.9 % (10.0-14.5)
[2019-09-28] MEDS ORDERED: PRENATAL VITAMIN 1 EA TAB PO SCH (07:00)
--- NOTE | 2019-09-28 07:57 | Postpartum Progress Note ---
LAQUITA MUNSON,MED STUDENT 09/28/19 0757: Note Note Day # 1 Subjective: Patient is without complaints. Ambulating, voiding. Tolerating a regular diet without nausea or vomiting. Normal lochia. Pain is well controlled with oral pain medications. Blood pressure continues to improve. Objective: Physical Exam: General - Alert and oriented, no apparent distress Abdomen - Soft, appropriately tender to palpation, non-distended, fundus firm at umbilicus Extremities - no edema, negative Genaro's bilaterally Assessment: Post- day # 1, normal vaginal delivery. Acute blood loss anemia Gestational Hypertension Plan: Routine care. Encourage breast feeding. Encourage ambulation. Ferrous sulfate supplementation. Continue to monitor blood pressure Plan for discharge tomorrow Vitals - Labs Vital Signs - I&O Vital Signs Date Time Temp Pulse Resp B/P (MAP) Pulse Ox O2 Delivery O2 Flow Rate FiO2 09/28/19 04:00 36.4 92 16 128/80 (96) 98 Room Air 09/28/19 00:05 36.0 93 16 144/88 (106) 99 Room Air 09/27/19 20:55 36.3 101 16 159/81 (107) Room Air 09/27/19 18:00 105 162/93 (116) 09/27/19 17:45 37.5 98 168/87 (114) 09/27/19 17:30 88 163/83 (109) 09/27/19 17:15 115 173/114 (133) 09/27/19 17:00 92 151/76 (101) 09/27/19 16:45 87 160/84 (109) 09/27/19 16:30 87 171/82 (111) 09/27/19 16:15 90 162/92 (115) 09/27/19 16:02 101 168/94 (118) 09/27/19 16:00 37.8 94 160/75 (103) 09/27/19 15:30 85 184/110 (134) 09/27/19 15:15 80 162/82 (108) 09/27/19 15:00 77 164/79 (107) 09/27/19 14:45 82 18 158/91 (113) 09/27/19 14:30 80 140/77 (98) 09/27/19 14:15 79 169/85 (113) 09/27/19 14:00 79 169/85 (113) 09/27/19 13:45 37.6 78 162/87 (112) 09/27/19 13:30 84 170/87 (114) 09/27/19 13:15 81 16 143/69 (93) 09/27/19 13:00 78 128/63 (84) 09/27/19 12:45 78 105/58 (74) 09/27/19 12:30 78 105/58 (74) 09/27/19 12:15 75 126/68 (87) 09/27/19 12:00 86 133/69 (90) 100 09/27/19 11:45 71 138/74 (95) 97 09/27/19 11:30 74 140/75 (96) 98 09/27/19 11:15 37.0 70 142/76 (98) 100 09/27/19 11:00 71 150/67 (94) 100 09/27/19 10:45 73 148/89 (108) 99 09/27/19 10:30 81 149/89 (109) 99 09/27/19 10:20 37.5 83 18 147/86 (106) 97 09/27/19 10:16 86 146/88 (107) 09/27/19 10:15 37.5 09/27/19 10:13 80 147/86 (106) 97 09/27/19 10:10 95 141/85 (103) 99 09/27/19 10:08 95 153/93 (113) 99 09/27/19 10:05 85 168/90 (116) 09/27/19 10:00 98 165/90 (115) 09/27/19 09:58 90 164/85 (111) 09/27/19 09:55 86 172/91 (118) 09/27/19 09:52 85 166/90 (115) 99 09/27/19 09:46 77 18 169/94 (119) 100 09/27/19 09:45 75 170/105 (126) 100 09/27/19 09:30 90 20 100 09/27/19 09:30 84 162/94 (116) 09/27/19 09:15 129 171/100 (123) 100 09/27/19 09:08 77 190/96 (127) 09/27/19 09:00 90 20 190/96 (127) 100 09/27/19 08:40 76 196/101 (132) I & O 09/28/19 07:00 Intake Total 2100 ml Balance 2100 ml Labs Laboratory Tests 09/28/19 05:14: White Blood Count 11.0, Red Blood Count 3.73L, Hemoglobin 9.6L, Hematocrit 30L, Mean Corpuscular Volume 82, Mean Corpuscular Hemoglobin 26, Mean Corpuscular Hemoglobin Concent 32, Red Cell Distribution Width 14.9H, Platelet Count 245, Mean Platelet Volume 10.4, Neutrophils (%) (Auto) 70, Lymphocytes (%) (Auto) 21, Monocytes (%) (Auto) 8, Eosinophils (%) (Auto) 1, Basophils (%) (Auto) 0, Neutrophils # (Auto) 7.7, Lymphocytes # (Auto) 2.4, Monocytes # (Auto) 0.9, Eosinophils # (Auto) 0.1, Basophils # (Auto) 0.0 Microbiology 09/25/19 Urine Culture - Final, Complete 3 or more isolates KATINA LEONARD DO 09/29/19 0814: Note Note Verification and Attestation of Medical Student E/M Service A medical student performed and documented this service in my presence. I reviewed and verified all information documented by the medical student and made modifications to such information, when appropriate. I personally performed the physical exam and medical decision making. Katina Leonard, Sep 29, 2019,08:14 LAQUITA MUNSON,MED STUDENT Sep 28, 2019 07:57 KATINA LEONARD DO Sep 29, 2019 08:14
[2019-09-28 09:15] VITALS: BP 138/88
[2019-09-28] MEDS: LABETALOL 200 MG (NORMODYNE) TAB PO SCH ×2 (09:15→20:32)
[2019-09-28] MEDS: FERROUS SULF 325 MG (IRON) TAB PO SCH (09:15)
[2019-09-28] MEDS: DOCUSATE SODIUM 100 MG (COLACE) CAP PO SCH ×2 (09:15→20:32)
--- NOTE | 2019-09-28 12:26 | Anesthesia-Regional Post-Op ---
Regional Patient Condition Mental Status: Alert, Oriented x3 Circulation: Same as Pre-Op Headache: Absent Sensation: Full Recovery Motor Block: Absent Post Op Complications Complications None Follow Up Care/Instructions Patient Instructions None needed. Anesthesia/Patient Condition Patient is doing well, no complaints, stable vital signs, no apparent adverse anesthesia problems. No complications reported per nursing. TOM ALCAZAR CRNA Sep 28, 2019 12:26
[2019-09-28 15:45] VITALS: BP 133/77
[2019-09-28 20:35] VITALS: BP 152/93
[2019-09-29] MEDS: IBUPROFEN 600 MG (MOTRIN) TAB PO SCH ×4 (00:22→17:41)
[2019-09-29] MEDS: ACETAMINOPHEN 500 MG TAB (TYLENOL) PO SCH ×3 (00:22→16:30)
[2019-09-29 00:25] VITALS: BP 130/82
[2019-09-29 06:05] VITALS: BP 136/83
[2019-09-29 08:00] VITALS: BP 130/91
--- NOTE | 2019-09-29 09:00 | Postpartum Progress Note ---
Note Note Day # 2 Subjective: Patient is without complaints. Ambulating, voiding. Tolerating a regular diet without nausea or vomiting. Normal lochia. Pain is well controlled with oral pain medications. Objective: Physical Exam: General - Alert and oriented, no apparent distress Abdomen - Soft, appropriately tender to palpation, non-distended, fundus firm at umbilicus Extremities - no edema, negative Genaro's bilaterally Assessment: PPD 2 NVD GHTN- improved. Plan: Routine care. Encourage breast feeding. Encourage ambulation. Ferrous sulfate supplementation. Plan for discharge today Vitals - Labs Vital Signs - I&O Vital Signs Date Time Temp Pulse Resp B/P (MAP) Pulse Ox O2 Delivery O2 Flow Rate FiO2 09/29/19 06:05 36.7 105 18 136/83 (100) 98 Room Air 09/29/19 00:25 36.7 87 18 130/82 (98) 98 Room Air 09/28/19 20:35 36.5 93 18 152/93 (112) 99 Room Air 09/28/19 15:45 36.5 98 18 133/77 (95) 98 Room Air 09/28/19 09:15 37.3 96 16 138/88 (105) 98 Room Air Labs Microbiology 09/25/19 Urine Culture - Final, Complete 3 or more isolates KATINA LEONARD DO Sep 29, 2019 09:00
[2019-09-29] MEDS: LABETALOL 200 MG (NORMODYNE) TAB PO SCH (10:17)
[2019-09-29] MEDS: DOCUSATE SODIUM 100 MG (COLACE) CAP PO SCH (10:17)
[2019-09-29] MEDS: FERROUS SULF 325 MG (IRON) TAB PO SCH (10:18)
[2019-09-29 12:00] VITALS: BP 132/84
[2019-09-29 16:00] VITALS: BP 128/80
== END 2019-09-29 17:50 | disposition home or self-care (01) | DRG 806 ==
LOC: LDRP 19:48
PROVIDERS: ADMIT Obstetrics & Gynecology; ATTEND Obstetrics & Gynecology
PROC: 10E0XZZ Delivery of Products of Conception, External Approach (ICD-10-PCS; principal; 2019-09-27)
PROC: 0KQM0ZZ Repair Perineum Muscle, Open Approach (ICD-10-PCS; 2019-09-27)
PROC: 3E0DXGC Introduction of Other Therapeutic Substance into Mouth and Pharynx, External Approach (ICD-10-PCS; 2019-09-27)
DX: O13.4 Gestational [pregnancy-induced] hypertension without significant proteinuria, complicating childbirth (principal); D62 Acute posthemorrhagic anemia; Z37.0 Single live birth; O70.1 Second degree perineal laceration during delivery; O90.81 Anemia of the puerperium; Z3A.36 36 weeks gestation of pregnancy
CPT/HCPCS: 36415; 80053; 81000; 82570; 83615; 84156; 84550; 85025; 86850; 86900; 86901; 87088

== ENCOUNTER → 2020-12-23 | Outpatient (CLI) | payer BC, OTHER ==
[~2020-12-23] MED LIST changes: +ACET-93 PO; +FERR325T18 PO; +IBUP-844 PO
--- NOTE | 2020-12-23 11:25 | Diagnostic Imaging Report ---
PROCEDURE: US Thyroid. TECHNIQUE: Multiple real-time grayscale images were obtained of the thyroid in various projections. INDICATION: Thyroid nodule. COMPARISON: No prior studies are available for comparison. FINDINGS: Right lobe of the thyroid measures 5.7 x 1.8 x 1.7 cm, and left lobe measures 4.6 x 1.4 x 2.1 cm. Isthmus is 5 mm in thickness. Both lobes of the thyroid gland show homogeneous echotexture. No discrete thyroid mass is identified. IMPRESSION: Unremarkable thyroid ultrasound. Dictated by: Dictated on workstation # [id number]
== END ==
LOC: RAD 11:15
PROVIDERS: ATTEND Obstetrics & Gynecology
DX: E04.1 Nontoxic single thyroid nodule (principal)
CPT/HCPCS: 76536

== ENCOUNTER → 2021-11-15 | Outpatient (CLI) | payer OTHER ==
--- NOTE | 2021-11-15 18:08 | Diagnostic Imaging Report ---
INDICATION: Supervision of normal . Anatomy scan. TECHNIQUE: Multiple real-time grayscale images were obtained over the gravid uterus. COMPARISON: None FINDINGS: A single live intrauterine gestation is visualized in breech presentation. heart tones measure 146 BPM. The placenta is anterior. The HUI visually has a normal appearance, although no dedicated measurements were performed. The cervix is closed and measures 5.5 cm in length. The kidneys, bladder, stomach, ventricles, four-chamber heart, three-vessel cord, spine, and cord insertion are visualized and have a normal appearance. The bilateral adnexa have a normal appearance. No adnexal mass or free fluid. Biometrical measurements are as follows: Biparietal 4.26 cm, age 19 weeks 0 days. Head circumference 16.93 cm, age 19 weeks 4 days. Abdominal circumference 14.62 cm, age 20 weeks 0 days. Femur length 3.34 cm, age 20 weeks 4 days. Sonographic estimate age: 19 weeks 6 days. Sonographic estimated date of delivery: 04/05/2022. Estimated Weight: 330 gm (+/- 48 gm). LMP percentile: 74%. heart rate: 146 beats per minute. number: 1 of 1. IMPRESSION: 1. Single live intrauterine gestation in breech presentation. Measurements correspond with a 19 weeks 6 days gestation with an estimated due date of 04/05/2022. These are within range of the clinical dates. Recommend continued follow-up, as indicated. 2. No anatomic abnormalities are identified on this exam. Dictated by: Dictated on workstation # [id number]
== END ==
LOC: RAD 14:35
PROVIDERS: ATTEND Obstetrics & Gynecology
DX: O32.1XX0 Maternal care for breech presentation, not applicable or unspecified (principal); Z3A.19 19 weeks gestation of pregnancy
CPT/HCPCS: 76805

== ENCOUNTER 2022-02-17 09:37 | Outpatient (RCR) | payer OTHER ==
[~2022-02-17 09:37] MED LIST changes: -BETAMETHASONE ACE/NA PHOS 6 MG/ML (CELESTONE SOLUSPAN) ONE
[2022-02-17] MEDS: BETAMETHASONE ACE/NA PHOS 6 MG/ML (CELESTONE SOLUSPAN) IM SCH (10:04)
[2022-02-18] MEDS: BETAMETHASONE ACE/NA PHOS 6 MG/ML (CELESTONE SOLUSPAN) IM SCH (10:23)
== END 2022-02-18 10:24 | disposition home or self-care (01) ==
LOC: WSo 09:37 → EDSTATUS 09:42 → WSo 02-18 10:24
PROVIDERS: ATTEND Obstetrics & Gynecology
DX: Z51.81 Encounter for therapeutic drug level monitoring (principal)
CPT/HCPCS: 96372

== ENCOUNTER → 2022-02-17 | Outpatient (CLI) | payer OTHER ==
[~2022-02-17] MED LIST changes: +BETAMETHASONE ACE/NA PHOS 6 MG/ML (CELESTONE SOLUSPAN) ONE; +LABE200T10 PO; -LABE200T7 PO
== END ==
LOC: LABNPT 09:54
PROVIDERS: ATTEND Obstetrics & Gynecology
DX: O13.9 Gestational [pregnancy-induced] hypertension without significant proteinuria, unspecified trimester (principal); Z3A.00 Weeks of gestation of pregnancy not specified
CPT/HCPCS: 82570; 84156

== ENCOUNTER → 2022-06-21 | Outpatient (CLI) | payer OTHER ==
[~2022-06-21] MED LIST changes: +AMLO-250 PO; +DOCU100C37 PO; +FERR325T24 PO; +FURO20TA4 PO; +PARO20TA5 PO; +SIME80TA16 PO
--- NOTE | 2022-06-21 10:10 | Diagnostic Imaging Report ---
ABDOMEN, FLAT UPRIGHT/DECUB INDICATION: Constipation, abdominal pain COMPARISON: None available. TECHNIQUE: Upright and supine AP view the abdomen FINDINGS: Nonobstructive bowel gas pattern. A moderate amount stool is present throughout the entire colon. No features of free intraperitoneal air. Lung bases are clear. Normal regional skeleton. IMPRESSION: Moderate burden of colonic stool. Dictated by: Dictated on workstation # [id number]
== END ==
LOC: RAD 09:12
PROVIDERS: ATTEND Physician Assistant
DX: K59.00 Constipation, unspecified (principal); R10.9 Unspecified abdominal pain
CPT/HCPCS: 74019

== ENCOUNTER → 2022-10-20 | Outpatient (CLI) | payer OTHER ==
[~2022-10-20] MED LIST changes: +HOLD METFORMIN - RECEIVED CONTRAST 20 ML VIAL IV SCH; +IOHEXOL 350 MG/ML 100 ML (OMNIPAQUE 350) VIAL IV ONE; +NS 100 ML (IVPB) BAG IV ONE
[2022-10-20 09:42] LABS: BASOPHILS % (AUTO) 1 % (0-10); EOSINOPHILS # (AUTO) 0.1 10^3/uL (0.0-0.3); EOSINOPHILS % (AUTO) 1 % (0-10); HEMATOCRIT 40 % (35-52); LYMPHOCYTES # (AUTO) 2.4 10^3/uL (1.0-4.0); LYMPHOCYTES % (AUTO) 40 % (12-44); MEAN CORPUSCULAR HEMOGLOBIN 27 pg (25-34); MEAN CORPUSCULAR HGB CONC 33 g/dL (32-36); MEAN CORPUSCULAR VOLUME 84 fL (80-99); MEAN PLATELET VOLUME 9.7 fL (9.0-12.2); MONOCYTES # (AUTO) 0.3 10^3/uL (0.0-1.0); MONOCYTES % (AUTO) 6 % (0-12); NEUTROPHILS # (AUTO) 3.2 10^3/uL (1.8-7.8); NEUTROPHILS % (AUTO) 53 % (42-75); PLATELET COUNT 363 10^3/uL (130-400)
[2022-10-20 09:49] LABS: ALBUMIN 4.5 GM/DL (3.2-4.5); POTASSIUM 4.3 MMOL/L (3.6-5.0)
[2022-10-20 09:50] LABS: CALCIUM 9.6 MG/DL (8.5-10.1)
[2022-10-20 09:52] LABS: TOTAL PROTEIN 7.8 GM/DL (6.4-8.2)
[2022-10-20 09:53] LABS: BILIRUBIN,TOTAL 0.6 MG/DL (0.1-1.0)
[2022-10-20 09:55] LABS: CREATININE SERUM 0.74 MG/DL (0.60-1.30)
[2022-10-20 10:57] LABS: ERYTHROCYTE SEDIMENTATION RATE 12 MM/HR (0-20)
--- NOTE | 2022-10-20 11:39 | Diagnostic Imaging Report ---
PROCEDURE: CT abdomen and pelvis with contrast. TECHNIQUE: Multiple contiguous axial images were obtained through the abdomen and pelvis after administration of intravenous contrast. Auto Exposure Controls were utilized during the CT exam to meet ALARA standards for radiation dose reduction. All CT scans use one or more of the following dose optimizing techniques: automated exposure control, MA and/or KvP adjustment based on patient size and exam type or iterative reconstruction. INDICATION: Right lower quadrant pain. No priors. There is no pericecal inflammation. No findings of appendicitis. There is no diverticulitis. No acute adnexal abnormality. There is no bowel obstruction. No pericolonic or perienteric edema. No bowel wall thickening. No inflammatory process. No abscess, hematoma or acute fluid collection. There is no ascites. No pneumatosis or free gas. Some mild hepatic steatosis with focal fatty intensification adjacent to the falciform ligament, incidental. No acute-appearing hepatic abnormality. Gallbladder, bile ducts, spleen, adrenals and pancreas all negative. The kidneys unobstructed. There is no ascites, abscess hematoma or acute fluid collection. The aortoiliac and mesenteric vessels patent and nonaneurysmal and nonacute. The bony structures and lung bases nonacute. IMPRESSION: Normal CT abdomen and pelvis. Dictated by: Dictated on workstation # [id number]
== END ==
LOC: RAD 09:10
PROVIDERS: ATTEND Physician Assistant
DX: R10.31 Right lower quadrant pain (principal)
CPT/HCPCS: 36415; 74177; 80053; 84703; 85025; 85652; 86141